=== PATIENT | female | born 1950 | race Caucasian/White ===

== ENCOUNTER 2018-11-12 22:39 | Inpatient (IN) | payer MEDICARE, BC | END 2018-11-16 14:05 | disposition home or self-care (01) | LOC: ED HOLD 11-13 01:02 → ER 22:39 → SUR 3N 11-13 07:29 | DX: K57.92 Diverticulitis of intestine, part unspecified, without perforation or abscess without bleeding (principal); N39.0 Urinary tract infection, site not specified; I10 Essential (primary) hypertension ==

== ENCOUNTER 2018-11-21 01:54 | Emergency (ER) | payer MEDICARE, BC ==
[~2018-11-21] VITALS: Ht 157.5 cm; Wt 68.2 kg
[~2018-11-21 01:54] MED LIST: ATOR40TA PO; CELE-193 PO; CIPR-230 PO; CITA20TA2 PO; ESTR0.5T PO; HYDR-4383 PO; METO-539 PO; METR-159 PO; OMEP20CA10 PO; PREG100C PO; TIZA2TAB4 PO
[2018-11-21] MEDS ORDERED: morphine 4 MG/ML inj SYRINge IV ONE ×2 (02:10→04:40)
[2018-11-21] MEDS ORDERED: normal saline 1000ML IV soln IVB ONE ×2 (02:10→04:20)
[2018-11-21] MEDS ORDERED: ketorolac tromethamine 15mg/ml inj. IV ONE (02:10)
[2018-11-21] MEDS ORDERED: iohexol 300mg/ml 100ml inj. ONE (02:35)
[2018-11-21 02:37] LABS: BASOPHILS # (AUTO) 0.1 X10'3 (0-0.2); BASOPHILS % (AUTO) 1.6 % (0-1); EOSINOPHILS # (AUTO) 0.2 X10'3 (0-0.9); HEMATOCRIT 44.1 % (35.0-45.0); HEMOGLOBIN 14.6 g/dl (12.0-16.0); LYMPHOCYTES % (AUTO) 36.7 % (21-51); MEAN CORPUSCULAR HEMOGLOBIN 30.5 PG (27.0-31.0); MEAN CORPUSCULAR HGB CONC 33.2 g/dL (33.0-36.5); MEAN CORPUSCULAR VOLUME 92.1 FL (78-98); MEAN PLATELET VOLUME 10.4 FL (7.4-10.4); MONOCYTES # (AUTO) 0.9 X10'3 (0-0.9); MONOCYTES % (AUTO) 10.8 % (2-12); NEUTROPHILS % (AUTO) 48.9 % (42-75); PLATELET COUNT 186 X10'3 (140-440); RED BLOOD COUNT 4.79 X10'6 (4.20-5.60); RED CELL DISTRIBUTION WIDTH 14.7 % (11.5-14.5); WHITE BLOOD COUNT 8.2 X10'3 (4.5-11.0)
[2018-11-21 02:50] LABS: ALANINE AMINOTRANSFERASE 35 U/L (12-78); ALBUMIN 3.9 G/DL (3.4-5.0); ALBUMIN/GLOBULIN RATIO 1.3 (1.1-1.5); ALKALINE PHOSPHATASE 61 IU/L (46-116); ANION GAP 10 (8-16); ASPARTATE AMINO TRANSFERASE 26 U/L (10-37); BILIRUBIN,TOTAL 0.4 MG/DL (0.1-1.0); BLOOD UREA NITROGEN 18 MG/DL (7-18); BUN/CREATININE RATIO 17.5 (6.6-38.0); CALCIUM 9.6 MG/DL (8.5-10.1); CHLORIDE 104 MMOL/L (99-107); CREATININE 1.03 MG/DL (0.40-0.90); GLUCOSE 120 MG/DL (70-104); POTASSIUM 3.7 MMOL/L (3.5-5.1); SODIUM 139 MMOL/L (135-145); TOTAL CARBON DIOXIDE 24.9 MMOL/L (24-32); eGFR 53 ML/MIN
[2018-11-21 02:56] LABS: INR 1.1 INR; PROTHROMBIN TIME 10.7 SECONDS (9.0-12.0)
[2018-11-21 02:57] LABS: PARTIAL THROMBOPLASTIN TIME 24 SECONDS (22-32)
[2018-11-21] MEDS ORDERED: PREG100C PO (03:28)
[2018-11-21] MEDS ORDERED: GLUC100017 (03:31)
[2018-11-21] MEDS ORDERED: MULT-269 PO (03:31)
[2018-11-21] MEDS ORDERED: PSYL3.4P5 PO (03:31)
[2018-11-21 03:33] LABS: CLARITY,URINE CLEAR (Clear); COLOR,URINE YELLOW (Yellow); GLUCOSE, URINE NEGATIVE (Neg); KETONES,URINE NEGATIVE (Neg); LEUKOCYTE ESTERASE ,URINE NEGATIVE (Neg); NITRITES, URINE NEGATIVE (Neg); OCCULT BLOOD,URINE TRACE-INTACT (Neg); PROTEIN,URINE NEGATIVE (Neg); UROBILINOGEN,URINE 0.2 E.U/dL (0.2-1.0)
[2018-11-21 03:44] LABS: BACTERIA,URINE FEW /HPF (Neg); RBC,URINE 0-2 /HPF (0-2); SQUAMOUS EPITHELIAL CELL,UR FEW /LPF (FEW); UA COLLECTION TYPE VOIDED; WBC,URINE 0-4 /HPF (0-4)
[2018-11-21] MEDS ORDERED: bisacodyl 10mg suppository rectal RC STA (04:08)
[2018-11-21] MEDS ORDERED: BISA10SU60 RC (04:21)
[2018-11-21 04:31] VITALS: BP 116/62
== END 2018-11-21 05:26 | disposition home or self-care (01) ==
LOC: ER 01:55
DX: K57.92 Diverticulitis of intestine, part unspecified, without perforation or abscess without bleeding (principal); K59.00 Constipation, unspecified; K44.9 Diaphragmatic hernia without obstruction or gangrene; Z90.49 Acquired absence of other specified parts of digestive tract; Z90.710 Acquired absence of both cervix and uterus; Z98.890 Other specified postprocedural states; Z88.0 Allergy status to penicillin; Z88.5 Allergy status to narcotic agent; Z79.2 Long term (current) use of antibiotics; Z79.899 Other long term (current) drug therapy
CPT/HCPCS: 36415; 74177; 80053; 81001; 83605; 85025; 85610; 85730; 87040; 93005; 96374; 96375; 96376; 99284; J1885; J2270; J7030; Q9967

== ENCOUNTER 2018-12-07 05:30 | Inpatient (IN) | payer MEDICARE, BC | END 2018-12-10 14:54 | disposition home or self-care (01) | LOC: PAS IN 05:30 → SUR 3N 11:59 | PROC: 0DTK4ZZ Resection of Ascending Colon, Percutaneous Endoscopic Approach (ICD-10-PCS; principal; 2018-12-07 09:06) | DX: K52.9 Noninfective gastroenteritis and colitis, unspecified (principal); K63.89 Other specified diseases of intestine ==